=== PATIENT | male | born 1945 | race Caucasian/White ===

== ENCOUNTER 2019-05-10 01:01 | Outpatient (CLI) | payer OTHER, SELFPAY ==
--- NOTE | 2019-05-10 10:03 | DI.MRI_ITS ---
EXAM: MR PELVIS WO CLINICAL HISTORY: PROSTATE CANCER C61, S/P FIDUCIAL PLACEMENT, RADIATION PLANNING, VOLUMETRIC. TECHNIQUE: Multiplanar multisequence MRI was performed. COMPARISON: No exams were available for comparison FINDINGS: The exam was performed for purposes of radiation treatment planning.
== END 2019-05-10 01:21 ==
PROVIDERS: PCP Nurse Practitioner Family; Visit Provider Radiology Radiation Oncology
DX: C61 Malignant neoplasm of prostate (principal); Z97.8 Presence of other specified devices
CPT/HCPCS: 72195

== ENCOUNTER 2022-07-01 01:53 | Outpatient (CLI) | payer MEDICARE, SELFPAY ==
[2022-07-01 09:38] LABS: CREATININE 2.4 mg/dL (0.70-1.30); Estimated GFR 27.45 (mL/min/1.73m2)
--- NOTE | 2022-07-01 10:00 | DI.MRI_ITS ---
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 CONTRAST MATERIAL: Noncontrast. Poor GFR. FINDINGS: Bones: The last intervertebral disc space is designated the L5/S1 level for the numbering purpose of this examination. The vertebral body heights are well maintained. Bilateral L5 pars defects and mil d L5-S1 spondylolisthesis.. Area of low signal in the T1 and T2 weighted images in the right-sided t he L 2 vertebral body without abnormal high signal on STIR images. This corresponds to the sclerotic focus seen on prior PET CT. No abnormal high signal lesions. The overall marrow signal shows fatty replacement, greatest in the sacrum. Cord: The conus tip ends at the T12 level. It is of normal size and signal intensity. T12-L1: No disc herniations or bulges are present. L1-2: Minimal disc bulging. L2-3: Mild disc bulging. Small endplate osteophytes. Mild facet degenerative changes. L3-4: Small endplate osteophytes and mild to moderate concentric disc bulging. Mild bilateral neura l foraminal narrowing. No significant central canal stenosis. L4-5: Minimal disc bulging laterally. Facet degenerative changes. Moderate bilateral neural forami nal narrowing. L5-S1: Marked loss of disc height. Grade 1 spondylolisthesis. Facet degenerative changes. Severe bilateral neural foraminal narrowing. Soft tissues: The visualized SI joints and sacrum are well maintained. The paraspinal soft tissues ar e unremarkable. IMPRESSION: Low signal lesion on T1 and T2 weighted images without high signal on STIR images, consistent with ar ea of sclerosis on previous PET CT. No additional lesions identified. L5 spondylolysis and L5-S1 spondylolisthesis causing bilateral neural foraminal narrowing. Neural foraminal narrowing is also noted at L4-5 technique secondary to combination of facet degenera tive changes and disc bulging. DATA REPOSITORY:
--- NOTE | 2022-07-01 11:30 | DI.CT_ITS ---
Exam(s) CT CHEST WO EXAM: CT CHEST WO CLINICAL HISTORY: NON-SMALL CELL LUNG CA, C34.31, PROSTATE CA, C61, ESOPHAGEAL CA, C15.9 TECHNIQUE: Imaging Protocol: Axial computed tomography images with coronal and sagittal reformatted images were created and reviewed CONTRAST MATERIAL: Noncontrast. Poor GFR. FINDINGS: Pulmonary parenchyma: Mild emphysematous changes. Stable appearance of area of atelectasis right low er lobe. No new masses or pulmonary nodules. Tracheobronchial tree: No bronchiectasis or mucous plugging. Mediastinum and Elena: No dominant adenopathy or fluid collection. Pleura: No effusion or pneumothorax. Heart: The heart is not dilated. Moderate to severe coronary artery calcifications are seen. Left atr ial appendage occlusion device noted. Mitral annular calcifications. Aorta: Thoracic aorta non-dilated. Damx-cy-[id number] calcifications. Esophagus: Unremarkable. No mass visible. No dilatation. No hiatal hernia. Upper abdomen: Cholelithiasis. Bones: Mild degenerative changes. No lytic or blastic lesions. Soft tissues: Unremarkable. IMPRESSION: Stable appearance of right lower lobe density, presumed atelectasis. No new findings. RADIATION DOSE DELIVERED: 729.76mGy.cm Total DLP DATA REPOSITORY: All CT scans at this facility are submitted to the National Radiology Data Registry (NRDR) Dose Index Registry (DIR) with the [employer] ([employer]). RADIATION OPTIMIZATION: All CT scans at this facility use at least one of these dose optimization te chniques: automated exposure control; mA and/or kV adjustment per patient size (includes targeted exa ms where dose is matched to clinical indication); or iterative reconstruction.
== END 2022-07-01 02:13 ==
LOC: DI 01:53
PROVIDERS: PCP Nurse Practitioner Family; Visit Provider Radiology Radiation Oncology
DX: C34.31 Malignant neoplasm of lower lobe, right bronchus or lung (principal); C61 Malignant neoplasm of prostate; C15.9 Malignant neoplasm of esophagus, unspecified; J43.8 Other emphysema; J98.11 Atelectasis; K80.20 Calculus of gallbladder without cholecystitis without obstruction; M43.17 Spondylolisthesis, lumbosacral region; M51.37 Other intervertebral disc degeneration, lumbosacral region; Z01.812 Encounter for preprocedural laboratory examination
CPT/HCPCS: 71250; 72148; 82565

== ENCOUNTER 2023-08-11 11:21 | Emergency (ER) | payer MEDICARE, SELFPAY ==
[2023-08-11 11:28] VITALS: BP 117/68; PULSE 52; RESP 24; TEMP 36.7; O2SAT 94
--- NOTE | 2023-08-11 11:30 | RT.EKG_ITS ---
APPROVED REPORT Exam: Resting ECG Reason for Exam: shortness of breath Patient Location: E HR:48 bpm ECG Measurements Heart Rate 48 AXIS MS 177 P 0 QRSd 104 QRS 20 QT 466 T 66 QTc 416 Conclusion Bradycardia with irregular rate...V-rate 43- 57, mean < 60 Low voltage, extremity and precordial leads...extremity<0.5mV, precordial<1.0mV bradycarda, narrow complex, normal axis,
--- NOTE | 2023-08-11 12:04 | W.ED.GENAD ---
Discharge Plan Disposition Patient Disposition: Home Condition: Stable Discharge Details Clinical Impression: Scarring of lung following radiation, Dyspnea Primary Care Provider: [facility] ED Provider: Ashia Jason Home Meds and New Rx's Prescriptions: Continued atorvastatin 40 MG tablet 40 mg PO HS isosorbide mononitrate 30 MG tablet extended release 24 hr 30 mg PO DAILY glipizide [Glucotrol XL] 5 MG tablet extended release 24hr 5 mg PO DAILY nitroglycerin [Nitrostat] 0.4 MG tablet, sublingual 0.4 mg Sublingual Q5 MIN PRN X3 PRN aspirin 81 MG tablet,chewable 81 mg PO DAILY dofetilide [Tikosyn] 500 MCG capsule 500 mcg PO BID Tradjenta 5 MG tablet 5 mg PO DAILY allopurinol 100 mg tablet 100 mg PO DAILY tamsulosin 0.4 mg capsule 0.4 mg PO DAILY Discharge Instructions Instructions: Dyspnea (ED) Additional Instructions: Chest x-ray shows some scarring which could be from the radiation to your right lower lung base. Please use the albuterol inhaler with a spacer as directed 1 or 2 puffs every 4-6 hours as needed for shortness of breath. Please follow-up with your primary care provider regarding the dyspnea and shortness of breath for further workup and evaluation . No evidence of pneumonia at this time. oxygen saturation is 94%. Follow up with primary care provider in 3-5 days. Return to ED sooner if any worsening or concerns. Referrals: [facility] [Primary Care Provider] - 3 days Discharge Data Discharge Date/Time-TO BE ENTERED AT DEPARTURE: 08/11/23 12:48 HPI General Mode of arrival: ambulatory. Date/Time Provider Initiated Documentation: 08/11/23 11:52. Limitations to Documentation: no limitations. Information obtained by: patient, RN notes reviewed and old records reviewed. HPI Narrative: 77-year-old male past medical history of multiple cancers presents to the ER after being seen at the [facility] just prior to arrival. He reports that he has had increasing shortness of breath over the last 4 to 5 days with exertion. He does have a albuterol rescue inhaler at home which she has not needed to use. Denies any productive cough, fever or chills denies any chest pain or any other associated symptoms. He reports that he just had labs drawn approximately 4 days ago and is declining lab work at this time. He is speaking in full sentences. He is satting 94% on room air at this time. 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 He does have history of COPD and A-fib, he has completed radiation and since then has noticed increased dyspnea. Related Data Home Medications Medication Instructions Recorded Confirmed aspirin 81 mg chewable tablet 81 mg PO DAILY 09/18/15 08/11/23 atorvastatin 40 mg tablet 40 mg PO HS 09/18/15 08/11/23 dofetilide 500 mcg capsule 500 mcg PO BID 09/18/15 08/11/23 (Tikosyn) glipizide 5 mg tablet, extended 5 mg PO DAILY 09/18/15 08/11/23 release 24 hr (Glucotrol XL) isosorbide mononitrate 30 mg 30 mg PO DAILY 09/18/15 08/11/23 tablet,extended release 24 hr linagliptin 5 mg tablet (Tradjenta) 5 mg PO DAILY 09/18/15 08/11/23 nitroglycerin 0.4 mg sublingual 0.4 mg sublingual Q5 MIN PRN X3 PRN 09/18/15 08/11/23 tablet (Nitrostat) allopurinol 100 mg tablet 100 mg PO DAILY 08/11/23 08/11/23 tamsulosin 0.4 mg capsule 0.4 mg PO DAILY 08/11/23 08/11/23 Allergies Allergy/AdvReac Type Severity Reaction Status Date / Time blood thinners AdvReac Severe Other (See Uncoded 08/11/23 11:34 Comment) General Stated Complaint: SOB SEE: 3 Review of Systems All systems reviewed & are unremarkable except as noted in HPI and below Cardiovascular Cardiovascular: Reports dyspnea Respiratory Respiratory: Reports dyspnea Exam Narrative Exam Narrative: Constitutional: Alert and oriented x3. Appears stated age. Normal body habitus. Head: Normocephalic, no trauma. Eyes: Pupils PERRL, Red reflex noted, EOM's intact. Eyelids symmetrical without lesions, discharge, or swelling. ENT: Bilateral TM's WNL, External ear normal to inspection, no mastoid TTP, swelling, or erythema, Nasal turbinates WNL, no nasal discharge. Normal dentition, Posterior pharynx WNL, no exudate. Chest: RRR, Normal S1, S2, distal pulses intact. Resp: Lungs clear to auscultation bilaterally, no wheezes, rales, or rhonchi. Abdomen: Soft, non-distended, Normoactive bowel sounds all 4 quads. Musculoskeletal: Normal gait, Moves all 4 extremities without difficulty. Skin: No suspicious rashes or lesions. Capillary refill less than 2 sec. Neurologic: Cranial nerves II-XII intact. Alert and oriented x 3. Motor: No deficits noted. Sensory: Intact bilaterally all 4 extremities. Hematologic/Lymphatic: No ecchymosis, no lymphadenopathy. Course Vital Signs Vital signs: Vital Signs Temperature 36.7 C 08/11/23 11:28 Pulse 52 L 08/11/23 11:28 Respiratory Rate 24 08/11/23 11:28 Blood Pressure 117/68 08/11/23 11:28 Pulse Oximetry 94 08/11/23 11:28 Temperature 36.7 C 08/11/23 11:28 Temperature Source Skin 08/11/23 11:28 Pulse 52 L 08/11/23 11:28 Respiratory Rate 24 08/11/23 11:28 Respiratory Effort Normal, Non-Labored 08/11/23 11:32 Blood Pressure 117/68 08/11/23 11:28 Blood Pressure Position Sitting 08/11/23 11:28 Pulse Oximetry 94 08/11/23 11:28 Oxygen Delivery Method Room Air 08/11/23 11:28 Oxygen Flow Rate 0 08/11/23 11:28 Pain Level 0 08/11/23 11:28 Medical Decision Making 77-year-old male past medical history of multiple cancers presents to the ER after being seen at the [facility] just prior to arrival. He reports that he has had increasing shortness of breath over the last 4 to 5 days with exertion. He does have a albuterol rescue inhaler at home which she has not needed to use. Denies any productive cough, fever or chills denies any chest pain or any other associated symptoms. He reports that he just had labs drawn approximately 4 days ago and is declining lab work at this time. He is speaking in full sentences. He is satting 94% on room air at this time. 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 He does have history of COPD and A-fib, he has completed radiation and since then has noticed increased dyspnea. Lungs are clear to auscultation bilaterally. Patient has no increased work of breathing ,no tachypnea at this time. Chest x-ray ordered. EKG obtained by research staff member in triage, bradycardia with a rate of 48, no old EKG available for review. No ST elevation or concern for acute TX. Chest x-ray shows vertical scarring versus atelectasis in the right lung base. Will give albuterol inhaler with a spacer here in the department. Will instruct follow-up with PCP patient verbalized understanding. This text was generated using [employer]ero[employer] system, please disregard any oddities of phrase or misspellings. Patient discharged home no further workup needed at this time. Patient reports that he just had labs done 4 days ago at an offsite facility. He is declining lab work at this time. Imaging Data Radiologic Study: Imaging: X-Ray Radiologist's impression: EXAM: XR CHEST 2V PA LATERAL CLINICAL HISTORY: SOB, Hx of CA. TECHNIQUE: 2D digital imaging was performed. COMPARISON: No exams were available for comparison FINDINGS: 2 views: Heart size is upper normal. The mediastinum is not widened. Left lung is clear. There is vertical scarring or atelectasis in the right lung base. No pleural effusions. No pulmonary edema. IMPRESSION: Thin vertical scarring or atelectasis in the right lung base. Quality:SDOH Health Related Social Needs: No Data to Display PFSH All Active Problems (Updated 08/11/23 @ 12:38 by Ashia Jason NP) Dyspnea (Acute) Scarring of lung following radiation (Acute) Social History Smoking/Tobacco Use Status: Former Tobacco Use Smoking risk assessment performed?: Yes Alcohol Intake: current Alcohol Intake frequency: 0-2 drinks per day Alcohol type: beer Drug use: Never Substance use type: does not use
[2023-08-11 12:19] VITALS: RESP 22
--- NOTE | 2023-08-11 12:28 | DI.RAD_ITS ---
Exam(s) XR CHEST 2V PA LATERAL EXAM: XR CHEST 2V PA LATERAL CLINICAL HISTORY: SOB, Hx of CA. TECHNIQUE: 2D digital imaging was performed. COMPARISON: No exams were available for comparison FINDINGS: 2 views: Heart size is upper normal. The mediastinum is not widened. Left lung is clear. There is vertical scarring or atelectasis in the right lung base. No pleural ef fusions. No pulmonary edema. IMPRESSION: Thin vertical scarring or atelectasis in the right lung base. DATA REPOSITORY: RADIATION DOSE DELIVERED:
[2023-08-11] MEDS: Albuterol HFA 8 GM 60 PUFF INH IH (12:45)
== END 2023-08-11 12:48 | disposition home or self-care (01) ==
PROVIDERS: Emergency Provider Registered Nurse Emergency; PCP Nurse Practitioner Family
DX: R06.09 Other forms of dyspnea (principal); I48.91 Unspecified atrial fibrillation; R00.1 Bradycardia, unspecified; R91.8 Other nonspecific abnormal finding of lung field; Z85.118 Personal history of other malignant neoplasm of bronchus and lung; Z85.46 Personal history of malignant neoplasm of prostate; Z85.830 Personal history of malignant neoplasm of bone; Z85.01 Personal history of malignant neoplasm of esophagus; Z85.51 Personal history of malignant neoplasm of bladder; Z92.3 Personal history of irradiation; Z79.82 Long term (current) use of aspirin; Z79.84 Long term (current) use of oral hypoglycemic drugs; Z87.891 Personal history of nicotine dependence
CPT/HCPCS: 93005; 99283; 71046; 93010